=== PATIENT | male | born 1985 | race Caucasian/White ===

== ENCOUNTER 2023-10-19 03:30 | Emergency (ER) | payer OTHER, MEDICAID, SELFPAY ==
[2023-10-19 03:42] VITALS: BP 134/76; PULSE 97; RESP 21; TEMP 36.9; O2SAT 99; BMI 25.0
--- NOTE | 2023-10-19 04:11 | ED_ITS ---
HPI - Wound/Laceration General Chief Complaint: Wound/Laceration Stated Complaint: abcess in hip Time Seen by Provider: 10/19/23 04:08 Source: patient Mode of arrival: Ambulatory History of Present Illness HPI narrative: 38-year-old male presents with right inguinal edema, erythema and presumed abscess noted is 6 days ago and that has progressively worsened over the last several days. Patient reports history of prior abscesses localized in his axilla and remote past. Patient states that he shaves within the area. Patient reports that he is generally healthy and was in his usual state of health prior to symptom onset. No other complaints or associated symptoms noted. Patient arrives in private vehicle. Patient is ambulatory awake, alert, in no apparent distress and maintaining his own airway. Related Data Previous Rx's Medication Instructions Recorded methocarbamol 500 mg tablet 500 mg PO QIDP PRN #20 tabs 09/18/16 sulfamethoxazole 800 1 tab PO BID #14 tabs 10/19/23 mg-trimethoprim 160 mg tablet (Bactrim DS) Allergies Allergy/AdvReac Type Severity Reaction Status Date / Time acetaminophen [From Vicodin] Allergy Verified 12/29/19 14:34 diazepam [From Valium] Allergy Verified 12/29/19 14:34 hydrocodone [From Vicodin] Allergy Verified 12/29/19 14:34 sumatriptan [From Imitrex] Allergy Verified 12/29/19 14:34 Review of Systems Review of Systems Narrative: See HPI for pertinent positives otherwise review of systems negative Patient History Social History Smoking Status: Current every day smoker Smoking Status: Current every day smoker Substance Use Type: marijuana Exam Initial Vital Signs Initial Vital Signs: Vital Signs Temperature 98.5 F 10/19/23 03:42 Pulse Rate 97 H 10/19/23 03:42 Respiratory Rate 21 10/19/23 03:42 Blood Pressure 134/76 10/19/23 03:42 Pulse Oximetry 99 10/19/23 03:42 Oxygen Delivery Method Room Air 10/19/23 03:42 Const General: cooperative, healthy appearing, comfortable, well developed, well groomed, No acute distress, No diaphoretic and No ill appearing HENMT Head: normal to inspection, normocephalic and atraumatic Ears: external ears normal Nose: external nose normal Face and sinus: normal facial exam Mouth: oral mucosae normal Eyes General: Yes appearance normal, both eyes and all related structures Neck Neck: normal visual inspection Chest Chest: normal inspection of the chest Resp Effort & Inspection: normal respiratory effort and able to speak in complete sentences Cardio Rate: regular rate Rhythm: regular rhythm GI Inspection: normal to inspection External: normal external exam Other: Right inguinal erythema, induration and fluctuance, 2-3 cm in diameter Back/Spine/Pelvis Back: normal to inspection Skin Other: See exam for skin findings Neuro General: patient alert, patient awake, patient oriented x3 and moves all extremities Extrem General: normal to inspection and full ROM Psych Appearance: grossly normal and well kempt Procedures Abscess I/D I&D #1: Time of procedure: 04:15 Site: other (Right groin) Side (if applicable): right Sedation/analgesia: none Local Anesthetic: lidocaine 1% Amount of anesthesia used (mL): 5 Technique: incised with #11 blade Amount of fluid expressed (mL): 20 Irrigation: Yes Packing used?: iodoform Complications: pain and bleeding Course Course Course Narrative: See [facility] Orders Ordered: Discontinued Medications Trimethoprim/Sulfamethoxazole (Trimeth/Sulfa 160/800 (Ds) Tablet) 1 tab PO NOW ONE Stop: 10/19/23 04:09 Vital Signs Vital signs: Vital Signs - 8 hr 10/19/23 03:42 Temperature 98.5 F Pulse Rate 97 H Respiratory Rate 21 Blood Pressure 134/76 Pulse Oximetry 99 Oxygen Delivery Method Room Air MDM - Wound/Laceration Differential Diagnosis Differential diagnosis: Likely abscess and other (Cellulitis, lymphadenopathy) MDM Narrative Medical decision making narrative: Patient presents with right inguinal/groin abscess. Patient reports coming in around 0345 as he felt that he could not wait any longer. Current vital signs are within normal limits/non-actionable. Patient is afebrile. See procedure note for details incision and drainage. Patient tolerated procedure well. Bactrim DS given along with a prescription. Wound check recommended in 3 days along with repacking the wound. Return precautions given. Patient discharged home in stable condition. Patient able to ambulate well without assistance at time of discharge Discharge Plan Departure Patient Disposition: Home Clinical Impression: Abscess Instructions: DI for Incision and Drainage of a Skin Abscess Prescriptions: New sulfamethoxazole-trimethoprim [Bactrim DS] 800-160 mg tablet 1 tab PO BID Qty: 14 0RF Continued methocarbamol 500 MG tablet 500 mg PO QIDP PRNQty: 20 0RF Referrals: Hawa Mcdaniels MD [Physician] - 3-5 days Stand Alone Forms: Patient Portal/API
[2023-10-19] MEDS: TRIMETH/SULFA 160/800 (DS) TABLET 1 TAB PO (04:12)
== END 2023-10-19 04:16 | disposition home or self-care (01) ==
PROVIDERS: Emergency Provider Emergency Medicine
DX: L02.214 Cutaneous abscess of groin (principal)
CPT/HCPCS: 10060; 99283

== ENCOUNTER 2025-09-18 07:10 | Emergency (ER) | payer OTHER, MEDICAID, SELFPAY ==
[2025-09-18 07:26] VITALS: BP 133/71; PULSE 90; RESP 16; TEMP 36.9; O2SAT 99; BMI 25.0
--- NOTE | 2025-09-18 07:29 | DI.US.S_ITS ---
PROCEDURE: US SCROTUM INDICATIONS: SCROTAL SWELLING/PAIN X 2 DAYS. URINATION PAIN X [address] TO FOLLOW. TECHNIQUE: Real-time scanning was performed of the scrotum and testicles, with image documentation. Color and pulse Doppler interrogation was performed of both testicles. COMPARISON: None. FINDINGS: Right: Testicle is normal in size at 4.0 x 3.0 x 2.2 cm, and homogenous in echotexture. Epididymis is normal in overall size and morphology. Hydrocele without varicoceles. Overlying scrotal skin is thickened. Left: Testicle is normal in size at 4.7 x 2.8 x 2.0 cm, and homogeneous in echotexture. Epididymis is normal in overall size and morphology. Varicocele without hydrocele. Overlying scrotal skin is normal in thickness. Doppler: Color and pulse Doppler demonstrate markedly increased flow to the right testicle and epididymis as well as mild increased vascularity within the left testicle and epididymis. IMPRESSION: Significant increased vascularity within the right testicle and epididymis suggestive of epididymal orchitis. Marked increased scrotal thickening is present on the right, suspicious to be secondary to inflammation. Infection cannot be definitively excluded. [id number] increased vascularity of the left testicle and epididymis which can be seen with epididymo-orchitis. Right hydrocele. Dictated by: Kendra Jackson M.D. on 09/18/2025 at 9:01 Approved by: Kendra Jackson M.D. on 09/18/2025 at 9:03
--- NOTE | 2025-09-18 07:30 | ED.MALEGU ---
HPI - Male Genitourinary General Chief complaint: Urogenital-Male Stated complaint: Swollen RT testical Time Seen by Provider: 09/18/25 07:31 History of Present Illness HPI Narrative: This is a 40-year-old white male who presents with 2 days of pain and swelling in his right testicle patient denied any trauma patient says he has had pain when he urinates for the past week or 2. Patient denied any fevers chills flank pain nausea or vomiting. Patient states the pain is not provoked and not palliated. Related Data Previous Rx's ?Medication ?Instructions ?Recorded methocarbamol 500 mg tablet 500 mg PO QIDP PRN #20 tabs 09/18/16 sulfamethoxazole 800 1 tab PO BID #14 tabs 10/19/23 mg-trimethoprim 160 mg tablet (Bactrim DS) doxycycline hyclate 100 mg capsule 100 mg PO BID #20 caps 09/18/25 naproxen 500 mg tablet (Naprosyn) 500 mg PO BID PRN pain #20 tabs 09/18/25 Allergies Allergy/AdvReac Type Severity Reaction Status Date / Time acetaminophen (From Vicodin) Allergy Verified 12/29/19 14:34 diazepam (From Valium) Allergy Verified 12/29/19 14:34 hydrocodone (From Vicodin) Allergy Verified 12/29/19 14:34 sumatriptan (From Imitrex) Allergy Verified 12/29/19 14:34 Review of Systems Review of Systems ROS Unobtainable: All systems reviewed & are unremarkable except as noted in HPI and below Constitutional Constitutional: Denies fatigue and Denies headache(s) Eyes Eyes: Denies loss of vision ENT Ears, Nose, Mouth, and Throat: Denies dizziness, Denies headache(s) and Denies throat swelling Cardiovascular Cardiovascular: Denies chest pain, Denies irregular heart rhythm, Denies lightheadedness, Denies palpitations, Denies dyspnea, Denies dyspnea on exertion and Denies orthopnea Respiratory Respiratory: Denies cough, Denies dyspnea, Denies dyspnea on exertion and Denies wheezing Gastrointestinal Gastrointestinal: Denies abdominal pain, Denies change in bowel habits, Denies diarrhea, Denies nausea and Denies vomiting Musculoskeletal Musculoskeletal: Denies tingling Integumentary/Breasts Skin/Breast: Denies pruritus, Denies erythema, Denies rash and Denies wounds Neurologic Neurologic: Reports system reviewed and no additional complaints, except as documented, Reports as per HPI, Denies confusion, Denies dizziness, Denies headache(s), Denies loss of vision and Denies tingling Psychiatric Psychiatric: Denies anxiety, Denies confusion, Denies depression, Denies homicidal ideation and Denies suicidal ideation Endocrine Endocrine: Denies fatigue, Denies flushing and Denies palpitations Hematologic/Lymphatic Hematologic/Lymphatic: Denies easy bruising Allergic/Immunologic Allergic/Immunologic: Denies urticaria, Denies throat swelling and Denies wheezing Exam Initial Vital Signs Initial Vital Signs: Vital Signs Temperature 98.4 F 09/18/25 07:26 Pulse Rate 90 09/18/25 07:26 Respiratory Rate 16 09/18/25 07:26 Blood Pressure 133/71 09/18/25 07:26 Pulse Oximetry 99 09/18/25 07:26 Oxygen Delivery Method Room Air 09/18/25 07:26 Const General: cooperative HENMT Head: normocephalic and atraumatic Ears: external ears normal and TM's normal bilaterally Nose: external nose normal and No nasal discharge Face and sinus: sinuses nontender, face symmetric, no sinus tenderness and No dry mucous membranes Mouth: oral mucosae normal and moist mucous membranes Teeth and gingiva: dentition normal Throat: tonsils normal and uvula midline Eyes Eyelids: eyelids normal Conjunctivae: conjunctivae normal Sclera: sclerae normal Pupils: PERRL EOM: EOM intact bilaterally Neck Neck: normal visual inspection, trachea midline, No lymphadenopathy, No midline deformity and No JVD Lymphatic: No lymphedema Chest Chest: normal inspection of the chest Resp Effort & Inspection: normal respiratory effort, able to speak in complete sentences, no respiratory distress and no use of accessory muscles Auscultation: clear to auscultation bilaterally, no rales, no rhonchi and no wheezes Cardio Rate: regular rate Rhythm: regular rhythm Heart Sounds: no click, no gallops, no murmurs and no rubs Pulses: normal peripheral pulses GI Inspection: non-distended Palpation: soft, no hepatosplenomegaly, No guarding, No pulsatile mass and No tender Auscultation: normal bowel sounds Other: Examination of the scrotum revealed the large right testicle there was also swollen the duodenum is on the right there is no overlying skin erythema tenderness. There was no palpable masses. Back/Spine/Pelvis Back: No CVA tenderness Cervical Spine: cervical ROM normal and No pain with cervical ROM Thoracic/Lumbar Spine: thoracic and lumbar spine normal to inspection Skin General: no rashes or lesions noted, No jaundice and No petechiae Neuro General: patient alert, patient oriented x3, gait normal and no focal motor deficits Speech: speech normal Extrem General: full ROM, no clubbing, cyanosis or edema, no pedal edema and no calf tenderness Psych Appearance: well kempt Mental Status: mental status grossly normal Attitude: cooperative Thought Content: normal and suicidality Judgment: judgment good Course Orders Ordered: ED Orders 09/18/25 07:29 US scrotum Stat 09/18/25 07:37 Chlamydia Gonorrhea PCR -URINE Stat Urinalysis and Microscopic Stat Urine Culture Stat 09/18/25 08:42 CT abdomen pelvis w con Stat 09/18/25 09:02 Complete Blood Count AUTO DIFF Stat Comprehensive Metabolic Panel Stat 09/18/25 09:16 Blood Culture Stat Sodium Chloride (Normal Saline 0.9%) 1,000 mls @ 1,000 mls/hr IV BOLUS ONE Stop: 09/18/25 09:40 Last Admin: 09/18/25 09:19 Dose: 1,000 mls/hr Documented By: CTS Discontinued Medications Ceftriaxone Sodium 1,000 mg/ (Sodium Chloride) 100 mls @ 200 mls/hr IV NOW ONE Stop: 09/18/25 08:44 Last Admin: 09/18/25 09:21 Dose: 200 mls/hr Documented By: CTS Vital Signs Vital signs: Vital Signs - 8 hr 09/18/25 07:26 Temperature 98.4 F Pulse Rate 90 Respiratory Rate 16 Blood Pressure 133/71 Pulse Oximetry 99 Oxygen Delivery Method Room Air MDM - Male Genitourinary Lab Data 09/18/25 09:02 09/18/25 09:02 Labs: Lab Results 09/18/25 09/18/25 Range/Units 07:37 09:02 WBC 10.2 (4.5-11.0) X10^3/uL RBC 4.34 L (4.5-5.9) X10^6/uL Hgb 11.4 L (13.5-17.5) g/dL Hct 34.0 L (41-53) % MCV 78.4 L (80-100) fL MCH 26.4 (26-34) PG MCHC 33.7 (30-36) % RDW 13.8 (11.6-14.8) % Plt Count 236 (150-400) X10^3/uL Neut % (Auto) 75.2 H (50-75) % Lymph % (Auto) 12.0 L (25-40) % Douglas % (Auto) 11.6 (3-14) % Eos % (Auto) 0.9 L (2-4) % Baso % (Auto) 0.3 (0-2) % Neut # (Auto) 7700 H (3048-4007) /uL Lymph # (Auto) 1200 (4923-8885) /uL Douglas # (Auto) 1200 H (0-900) /uL Eos # (Auto) 100 (0-450) /uL Baso # (Auto) 0 (0-100) /uL Sodium 136 L (137-145) mmol/L Potassium 3.5 (3.4-5.1) mmol/L Chloride 97 L (98-107) mmol/L Carbon Dioxide 31 (22-32) mmol/L BUN 19 (9-20) mg/dL Creatinine 0.88 (0.66-1.25) mg/dL Estimated GFR > 60 (>60) mL/min BUN/Creatinine Ratio 21.6 (6-22) Glucose 80 (70-99) mg/dL Calcium 8.6 (8.4-10.2) mg/dL Total Bilirubin 0.8 (0.2-1.3) mg/dL AST 23 (17-59) IU/L ALT 14 (<50) IU/L Alkaline Phosphatase 44 (38-126) U/L Total Protein 7.7 (6.3-8.2) g/dL Albumin 4.4 (3.5-5.0) g/dL Globulin 3.3 (1.7-4.1) g/dL Albumin/Globulin Ratio 1.3 (1.0-2.8) Urine Color Yellow Urine Appearance Cloudy Urine pH 6.0 (4.5-8.0) Ur Specific [place] >=1.030 H (1.000-1.035) Urine Protein 3+ H (Negative) Urine Glucose (UA) Negative (Negative) g/dL Urine Ketones Negative (NEGATIVE) Urine Occult Blood 3+ H (Negative) Urine Nitrate Negative (Negative) Urine Bilirubin Negative (NEGATIVE) Urine Urobilinogen 4.0 H (0.2) E.U./dL Ur Leukocyte Esterase 1+ H (NEGATIVE) Urine RBC 1-5/hpf (0-5/HPF) Urine WBC 30-100/hpf H (0-5/HPF) Ur Squamous Epith Cells 0-1 /hpf (0-5/HPF) Urine Bacteria Moderate (10-30) H (None) Urine Mucus 2+ H (Negative) Ur Culture Indicated? Specimen cultured Vol Urine Centrifuged 10ml (spun) Ur Chlamydia DNA (PCR) Detected H N gonorrhoeae DNA (PCR) Not detected MDM Narrative Medical decision making narrative: The patient had CBC is unremarkable chemistry was unremarkable urinalysis positive for 1+ leukocytes with 30-100 WBCs 3 +blood and 1-5 RBCs. Urine chlamydia was positive urine gonorrhea was negative. Patient initial ultrasound which revealed bilateral epididymitis with inflammation the spermatic cord according to the tech who was the worst case of epididymitis she ever sore. CT of the abdomen and pelvis was consistent with right epididymitis. The emergency room patient did receive a g of IV Rocephin. At this point the patient will be sent home with a prescription for doxycycline and Naprosyn to follow up with his doctor in 2-3 days. He will be also instructed to notify any of his sexual partners that he does have an STI and that they should be checked. Differential diagnosis is testicular torsion epididymitis hydrocele spermatocele Discharge Plan Departure Patient Disposition: Home Clinical Impression: Epididymitis, Chlamydia infection Instructions: Chlamydia: The Silent STD, Chlamydia, Chlamydia Antibodies, DI for Chlamydia, DI for Epididymitis Activity Restrictions/Additional Instructions: Follow-up with your doctor in a week Prescriptions: New doxycycline hyclate 100 mg capsule 100 mg PO BID Qty: 20 0RF naproxen [Naprosyn] 500 mg tablet 500 mg PO BID PRN (Reason: pain) Qty: 20 0RF No Action methocarbamol 500 MG tablet 500 mg PO QIDP PRNQty: 20 0RF sulfamethoxazole-trimethoprim [Bactrim DS] 800-160 mg tablet 1 tab PO BID Qty: 14 0RF Stand Alone Forms: Patient Portal/API
[2025-09-18 07:43] LABS: Appearance Urine UA CLOUDY; Bilirubin Urine UA NEGATIVE (NEGATIVE); Color Urine UA YELLOW; Glucose Urine UA NEGATIVE (Negative); Ketones Urine UA NEGATIVE (NEGATIVE); Leukocyte Esterase Urine UA 1+ (NEGATIVE); Nitrite Urine UA NEGATIVE (Negative); Occult Blood Urine UA 3+ (Negative); Protein Urine UA 3+ (Negative); Specific Gravity Urine UA >=1.030 (1.000-1.035); Urobilinogen Urine UA 4.0 E.U./dL (0.2); pH Urine UA 6.0 (4.5-8.0)
[2025-09-18 07:52] LABS: Culture Indicated Urine Specimen Cultured
--- NOTE | 2025-09-18 08:42 | DI.CT.S_ITS ---
PROCEDURE: CT ABDOMEN PELVIS W CON INDICATIONS: epididymitis extending into pelvis r/o fourniers TECHNIQUE: After the administration of intravenous contrast, axial sections acquired from the lung bases to the pubic symphysis. Coronal and sagittal reformats were performed. For radiation dose reduction, the following was used: automated exposure control, adjustment of mA and/or kV according to patient size. COMPARISON: None. FINDINGS: Image quality: Diagnostic. Lower Chest: No significant findings. ABDOMEN: Liver: No solid mass. Focal fatty infiltration along the falciform ligament. Gallbladder: No radiopaque gallstones or wall thickening. Biliary ducts: No biliary dilation. Pancreas: No ductal dilation. Spleen: Size is within normal limits. Adrenal Glands: No adrenal nodules. Kidneys and Ureters: No hydronephrosis. No solid mass. No complex renal cystic lesion which requires follow up. Stomach and Bowel: Normal colonic caliber, without significant wall thickening. Retrocecal appendix is normal in diameter. No periappendiceal stranding Peritoneum: No abnormal intraperitoneal fluid. No free air. Ventral Wall: No significant ventral hernia. Abdominal Nodes: No retroperitoneal or mesenteric adenopathy by size criteria. Vessels: Aorta and inferior vena cava are normal in size. PELVIS: Pelvic Organs: Scrotal wall thickening with thickening and edema in the right spermatic cord common corresponding to the findings on ultrasound. There is overlying soft tissue swelling within the subcutaneous fat of the inferior anterior pelvis. No pelvic wall collection. No gas foci. No extension of inflammatory change posteriorly along the ischioanal fossa to suggest Julieta's gangrene. Bladder: The urinary bladder is decompressed. Pelvic Nodes: Bilateral prominent inguinal nodes, which measure up to 1 cm by short axis. Miscellaneous: No inguinal hernias are seen. Bones: No aggressive osseous abnormality. IMPRESSION: Inflammatory changes along the right spermatic cord and along the right greater than left scrotum concerning for reactive change versus possible soft tissue infection. No discrete abscess is identified. No gas foci or inflammatory change tracking into the ischiofossa to correlate for imaging findings of Julieta's gangrene. Reactive bilateral inguinal lymph nodes. Dictated by: Don Red M.D. on 09/18/2025 at 8:18 Approved by: Don Red M.D. on 09/18/2025 at 8:27
[2025-09-18 09:09] LABS: Add Manual Diff / Slide Review NO; Hematocrit 34.0 % (41-53); Hemoglobin 11.4 g/dL (13.5-17.5); Lymphocytes Absolute Auto 1200 /uL (1100-4500); Mean Corpuscular HGB Conc 33.7 % (30-36); Mean Corpuscular Hemoglobin 26.4 PG (26-34); Mean Corpuscular Volume 78.4 fL (80-100); Platelet Count 236 X10^3/uL (150-400)
[2025-09-18 09:10] VITALS: PULSE 85; O2SAT 95
[2025-09-18 09:11] LABS: Urine N gonorrhoeae NOT DETECTED
[2025-09-18 09:12] LABS: Urine Chlamydia DETECTED
[2025-09-18 09:19] VITALS: BP 109/62; PULSE 85; O2SAT 100
[2025-09-18] MEDS: SODIUM CHLORIDE 0.9% 1,000 ML 1000 ML IV (09:19)
[2025-09-18 09:23] LABS: Alanine Aminotransferase 14 IU/L (<50); Albumin 4.4 g/dL (3.5-5.0); Albumin Globulin Ratio 1.3 (1.0-2.8); Alkaline Phosphatase 44 U/L (38-126); Blood Urea Nitrogen 19 mg/dL (9-20); Calcium 8.6 mg/dL (8.4-10.2); Carbon Dioxide 31 mmol/L (22-32); Chloride 97 mmol/L (98-107); Estimated Glomerular Filt Rate > 60 mL/min (>60); Globulin 3.3 g/dL (1.7-4.1); Glucose 80 mg/dL (70-99); HEMOLYSIS < 15 (0-50); Potassium 3.5 mmol/L (3.4-5.1); Sodium 136 mmol/L (137-145); Total Protein 7.7 g/dL (6.3-8.2)
[2025-09-18 09:30] VITALS: BP 116/66; PULSE 84; O2SAT 99
[2025-09-18 10:00] VITALS: BP 126/76; PULSE 86; O2SAT 96
== END 2025-09-18 10:15 | disposition home or self-care (01) ==
PROVIDERS: Emergency Provider Emergency Medicine
DX: A56.19 Other chlamydial genitourinary infection (principal)
CPT/HCPCS: 36415; 74177; 76870; 80053; 81001; 85025; 87040; 87086; 87491; 87591; 93975; 96365; 99284; J0696; J7030; J7050; Q9967